=== PATIENT | male | born 1950 | race Caucasian/White ===

== ENCOUNTER → 2019-09-05 09:54 | Outpatient (CLI) | payer MEDICARE, SELFPAY ==
--- NOTE | 2019-09-05 09:55 | CA_ITS ---
APPROVED REPORT EXAM: Comprehensive 2D, Doppler, and color-flow Echocardiogram Head Bone Grinder: Angie Paige RDCS Ht: 5 ft 6 in Wt: 148lbs BSA: 1.76 BP: 156/86 mmHg Indications: CAD HTN HLP KENNEDYS DISEASE 2D Dimensions LVOT 1.79 cm (M/F) 1.5-2.5 M-Mode Dimensions RVDd 1.45 cm (0.9-2.6) LVDd 6.02 cm (3.5-5.7) LVDs 4.69 cm (3.5-5.7) IVSd 0.76 cm (0.6-1.1) PWd 0.76 cm (0.6-1.1) EF (Teich) 43.80% FS 22.10% EDV (Teich) 181.40 mL ESV (Teich) 101.90 mL LV Diastology E/A Ratio 1.07 Mitral Valve MV A Velocity 60.00 (40-130 cm/s) Left Ventricle Left atrium is mildly enlarged, left ventricle is normal size, mild concentric left ventricular hypertrophy, visually estimated ejection fraction 55% with no regional wall motion abnormality. Grade 1 diastolic dysfunction seen without tissue Doppler evidence of raise left atrial pressure. Right Ventricle Right atrium and right ventricular normal size and contractility. Aortic Valve Aortic valve is minimally thickened and fibrosed, there is no aortic stenosis or aortic insufficiency. Mitral Valve Mitral valve is grossly normal, there is mild mitral regurgitation. Tricuspid Valve Tricuspid valve is grossly normal, there is mild tricuspid regurgitation. Pulmonic Valve Pulmonic valve is poorly visualized. Great Vessels Aortic root is normal size. Pericardium No significant pericardial effusion noted. Conclusion 1. Mildly enlarged left atrium, normal left ventricular size, mild concentric left ventricular hypertrophy, visually estimated ejection fraction 55% with no regional wall motion abnormality, grade 1 diastolic dysfunction seen without tissue Doppler evidence of raise left atrial pressure. 2. Mild mitral and tricuspid regurgitation. 3. No significant pericardial effusion noted. Electronically signed by : Hernando Beckham, 09/05/2019 20:57:29
== END ==
PROVIDERS: PCP Family Medicine; Visit Provider Internal Medicine
DX: I25.10 Atherosclerotic heart disease of native coronary artery without angina pectoris (principal)
CPT/HCPCS: 93306

== ENCOUNTER → 2020-09-03 11:51 | Outpatient (CLI) | payer MEDICARE, SELFPAY | PROVIDERS: PCP Family Medicine; Visit Provider Internal Medicine | DX: E78.5 Hyperlipidemia, unspecified (principal); G12.1 Other inherited spinal muscular atrophy; I11.9 Hypertensive heart disease without heart failure; I25.10 Atherosclerotic heart disease of native coronary artery without angina pectoris; K21.9 Gastro-esophageal reflux disease without esophagitis | CPT/HCPCS: 93306 ==

== ENCOUNTER → 2021-09-12 11:23 | Outpatient (CLI) | payer MEDICARE, SELFPAY ==
--- NOTE | 2021-09-12 12:11 | NM_ITS ---
APPROVED REPORT Exam: Nuclear Stress Test Indication: chest pain..short of breath Patient Location: Outpatient Stress Tech: Daisy Chowdary MI Tech:LEE Thompson RT(R)(N) Ht: 5 ft 6 in Wt: 126 lbs HR: 75 bpm BP: 135/79 mmHg BSA: 1.64 m2 BMI: 20.3 History: chest pain..short of breath Procedure: Patient received a 0.4 mg of intravenous Lexiscan, resting heart rate 75 bpm, resting blood pressure 135/79 mmHg, with Lexiscan maximum heart rate achived was 112 bpm which is Less than 85 % of the maximum predicted heart rate and blood pressure was 154/85 mmHg. With Lexiscan, patient denied any complaint of chest pain. pt unable to lay on his belly for the prone pictures Electrocardiogram Resting electrocardiogram shows sinus rhythm, with Lexiscan there is less than 1.[address] segment depression noted from the baseline EKG. The EKG portion of the Lexiscan is nondiagnostic. Cardiac Stress and Resting SPECT Images: Cardiac Stress and Resting SPECT images were obtained using technetium 99m Myoview 32.9 mCi stress and 10.38 mCi at rest. Gated SPECT for analysis of segmental wall motion and calculation of the ejection fraction also done. Cardiac stress and resting SPECT images show mild fixed defect in the inferior wall with normal contractility gated SPECT is likely secondary to soft tissue attenuation, no reversible ischemia seen, compared right ejection fraction is over 65% with no regional wall motion abnormality, right ventricle is normal size and contractility. Conclusion: 1. The EKG portion of the Lexiscan is nondiagnostic. 2. No scintigraphic evidence of reversible ischemia seen, computer derived ejection fraction is over 65% with no regional wall motion abnormality, right ventricle is normal size and contractility. 3. Likely normal Lexiscan Myoview study. Electronically signed by : Hernando Beckham MD 09/13/2021 15:22:06
--- NOTE | 2021-09-12 13:01 | CA_ITS ---
APPROVED REPORT EXAM: Comprehensive 2D, Doppler, and color-flow Echocardiogram Casino Investigator: Lisa Martines RCS, RVS Ht: 5 ft 6 in Wt: 120lbs BSA: 1.61 BP: 130/77 mmHg Indications: CP, SOB, Bienvenido's disease, Echo Enhancing Agent Comments: Patient scanned supine in wheelchair 2D Dimensions IVSd 0.99 cm LVEF (Visual) 52.80 % PWd 0.89 cm LVDd 3.38 cm LVDs 2.49 cm Aortic Root 3.34 cm Left Atrium 2.46 cm LVOT 1.83 cm (M/F) 1.5-2.5 M-Mode Dimensions LA Diam 2.38 cm (1.9-4.0) Ao Diam 3.51 cm (2.0-3.7) TAPSE 1.63 (<1.7) LV Diastology E Decel Time 230.00 (160-240 msec) E/A Ratio 0.76 MED E' 4.40 (< 7 cm/sec) MED A' 9.60 cm/s E'/MED E' Ratio 10.89 (>14) LAT E' 5.40 (<10 cm/sec) LAT A' 10.10 cm/s E/LAT E' Ratio 8.87 (>14) Aortic Valve LVOT Max 73.00 (70-110 cm/s) LVOT VTI 14.67 cm AoV Peak Oneal. 95.00 (50-130 cm/s) AO Peak GR. 3.60 mmHg AO Mean GR. 1.80 (<5 mmHg) AO VTI 16.51 (18-25 cm) ALONDRA (VTI) 2.34 (2.5-4.5 cm2) Mitral Valve MV A Velocity 63.00 (40-130 cm/s) E/A Ratio 0.76 MV Decel. Time 230.00 (160-240 ms) MV Mean Gr. 1.20 (<2mmHg) Tricuspid Valve TR P. Velocity 165.00 cm/s RAP Estimate 10.00 mmHg RVSP 20.90 mmHg Left Ventricle Technically difficult study because of the patient fact in poor acoustic windows, left atrium is mildly enlarged, left ventricle is normal size, mild concentric left ventricular hypertrophy, visually estimated ejection fraction 55% with no regional wall motion abnormality, grade 1 diastolic dysfunction seen without tissue Doppler evidence of raise left atrial pressure. Right Ventricle Right atrium right ventricle is normal size and contractility. Aortic Valve Aortic valve is minimally thickened and fibrosed, there is no aortic stenosis or aortic insufficiency. Mitral Valve Mitral valve is grossly normal, there is trace mitral regurgitation. Tricuspid Valve Tricuspid valve grossly normal, there is trace tricuspid regurgitation, tricuspid regurgitation jet velocity is inadequate for calculation of the right ventricular systolic pressure. Pulmonic Valve Pulmonic valve is poorly visualized. Great Vessels Aortic root is normal size. Inferior vena cava is poorly visualized. Pericardium No significant pericardial effusion noted. Conclusion 1. Technically difficult study because of the patient factors and poor acoustic windows. 2. Mildly enlarged left atrium, normal left ventricular size, mild concentric left ventricular hypertrophy, visually estimated ejection fraction 55% with no regional wall motion abnormality, grade 1 diastolic dysfunction seen without tissue Doppler evidence of raise left atrial pressure. 3. Trace mitral and tricuspid regurgitation. 4. No significant pericardial effusion noted. 5. Inferior vena cava is poorly visualized. Electronically signed by : Hernando Beckham MD 09/13/2021 16:26:40
--- NOTE | 2021-09-12 13:15 | CA_ITS ---
APPROVED REPORT Exam: Pharmacologic Technologist: ,, Ht: 5 ft 6 in Wt: 146 lbs BSA: 1.75 m2 HR: 73 bpm BP: 135/79 mmHg Medical History Medications: Metoprolol,,,,, Asa,,,,, Gabapentin,,,,, Nexium,,,,, Zocor,,,,, KloNOPIN,,,,, Meclizine,,,,, Rameron,,,,, Dyazide,,,,, Stress Test Details Test: Yash HR Resting HR: 75 bpm Max Heart Rate (APMHR): 149.382167 bpm Max HR Achieved: 112 bpm Target HR (85% APMHR): 126.065780 bpm % of APMHR: 75.17 Recovery HR: 98 bpm BP Resting BP: 135/79 mmHg Max BP: 154/85 mmHg Recovery BP: 149.0/83.0 mmHg ECG Resting ECG: NSR, diffuse ST abns Clinical Exercise duration: 04:01 min Highest Stage Achieved: Exercise capacity: 1.0 METs Stress ECG Conclusion Symptoms: No CP, No C/O. Arrhythmias/Ectopy: None ST-T Changes: Exaggeration of baseline ST abns. Conclusion: Non-diagnostic Lexiscan stress. Myoview images reported separately. Electronically signed by : Hernando Beckham MD 09/13/2021 09:16:15
== END ==
PROVIDERS: PCP Nurse Practitioner; Visit Provider Urology
DX: G12.1 Other inherited spinal muscular atrophy; I11.9 Hypertensive heart disease without heart failure; I25.10 Atherosclerotic heart disease of native coronary artery without angina pectoris; R06.00 Dyspnea, unspecified; R07.89 Other chest pain; E78.49 Other hyperlipidemia
CPT/HCPCS: 78452; 93017; 93306; A9502; J2785

== ENCOUNTER → 2022-09-30 14:38 | Outpatient (CLI) | payer MEDICARE, SELFPAY ==
--- NOTE | 2022-09-30 14:40 | CA_ITS ---
APPROVED REPORT EXAM: Comprehensive 2D, Doppler, and color-flow Echocardiogram Pattern Lease Inspector: NATALIE Llamas, RVS Ht: 5 ft 6 in Wt: 126lbs BSA: 1.64 BP: 147/86 mmHg Indications: Bienvenido's disease, CAD, HTN, HLD,Motorized wheelchair bound. retired Physician 2D Dimensions IVSd 0.61 cm M: 0.6-1.2 LVEF (Visual) 66.90 % PWd 0.92 cm M: 0.6 - 1.2 LA Volume 25.70 mL LVDd 3.79 cm M: 4.2 - 5.9 LA Volume Index 15.67 mL/m2 (M/F) 16-34 LVDs 2.41 cm M: 2.5 - 4.0 Aortic Root 3.09 cm M: 3.1 - 3.7 Left Atrium 3.61 cm M: 3.0 - 4.0 LVOT 1.88 cm (M/F) 1.5-2.5 Ascending Aorta 3.24 cm M: 2.6 - 3.4 M-Mode Dimensions LA Diam 3.17 cm (1.9-4.0) Ao Diam 3.72 cm (2.0-3.7) EPSs 1.33 cm TAPSE 1.51 (<1.7) LV Diastology E Decel Time 210.00 (160-240 msec) E/A Ratio 0.76 MED E' 5.90 (< 7 cm/sec) MED A' 9.30 cm/s E'/MED E' Ratio 9.56 (>14) LAT E' 5.40 (<10 cm/sec) LAT A' 10.10 cm/s E/LAT E' Ratio 10.44 (>14) Aortic Valve LVOT Max 76.00 (70-110 cm/s) LVOT VTI 15.84 cm AoV Peak Oneal. 121.00 (50-130 cm/s) AO Peak GR. 5.80 mmHg AO Mean GR. 3.00 (<5 mmHg) AO VTI 23.21 (18-25 cm) ALONDRA (VTI) 1.89 (2.5-4.5 cm2) Mitral Valve MV A Velocity 75.00 (40-130 cm/s) E/A Ratio 0.76 MV Decel. Time 210.00 (160-240 ms) MV PHT 60.00 ms Pulmonary Valve PV Peak Velocity 98.00 (50-150 cm/s) Tricuspid Valve TR P. Velocity 199.00 cm/s RAP Estimate 10.00 mmHg RVSP 25.80 mmHg Left Ventricle Left atrium is mildly enlarged, left ventricle is normal size, mild concentric left ventricular hypertrophy, estimated ejection fraction 55% with no regional wall motion abnormality, grade 1 diastolic dysfunction seen without tissue Doppler evidence of raise left atrial pressure. Right Ventricle Right atrium and right ventricle are normal size and contractility. Aortic Valve Aortic valve is minimally thickened and fibrosed there is no aortic stenosis aortic insufficiency. Mitral Valve Mitral valve is grossly normal, there is trace mitral regurgitation. Tricuspid Valve Tricuspid grossly normal, there is trace tricuspid regurgitation, tricuspid regurgitation jet velocity is inadequate for calculation of the right ventricular systolic pressure. Pulmonic Valve Pulmonic valve is poorly visualized. Great Vessels Aortic root is normal size. Inferior vena cava is poorly visualized. Pericardium No significant pericardial effusion noted. Conclusion 1. Mildly dilated, normal left ventricular size, mild concentric left ventricular hypertrophy, estimated ejection fraction 55% with no regional wall motion abnormality, grade 1 diastolic dysfunction seen without tissue Doppler evidence of raise left atrial pressure. 2. Trace mitral and tricuspid regurgitation. 3. No significant pericardial effusion noted. Electronically signed by : Hernando Beckham MD 09/30/2022 19:27:01
== END ==
PROVIDERS: PCP Nurse Practitioner Family; Visit Provider Internal Medicine
DX: E78.2 Mixed hyperlipidemia (principal); G12.9 Spinal muscular atrophy, unspecified; I11.9 Hypertensive heart disease without heart failure; I25.10 Atherosclerotic heart disease of native coronary artery without angina pectoris
CPT/HCPCS: 93306

== ENCOUNTER → 2023-09-30 09:40 | Outpatient (CLI) | payer MEDICARE, SELFPAY ==
--- NOTE | 2023-09-30 09:47 | CA_ITS ---
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 Limited imaging secondary to limited mobility and positioning. 2D Dimensions LVEF (Topete's) 60.60 % M: 52 - 72 LV Volume 41.10 mL M: 62 - 150 LV Volume Index 23.5 mL/m2 M: 34 - 74 LA Volume 24.60 mL LA Volume Index 14.06 mL/m2 (M/F) 16-34 EF AP4 61.00 % EF AP2 59.2 % EF BP 60.6 % GL Strain -22.4 % LV Diastology E Decel Time 183 (160-240 msec) E/A Ratio 1.0 MED E' 4.9 (>= 7 cm/sec) E'/MED E' Ratio 13.57 (<= 14) LAT E' 6.3 (>= 10 cm/sec) E/LAT E' Ratio 10.56 (<= 14) Mitral Valve MV E Max Oneal. 66.0 (40-130 cm/s) MV A Velocity 67.0 (40-130 cm/s) E/A Ratio 0.99 MV Decel. Time 183 (160-240 ms) Left Ventricle The left ventricle is normal size. The left ventricular systolic function is normal. The left ventricular ejection fraction is within the normal range. There is increased LV wall thickness. Regional wall motion abnormalities cannot be accurately estimated due to technically limited study. Diastolic function is indeterminate. LVEF is 55%. Right Ventricle The right ventricle is not well-visualized. Atria The left atrium size is normal. The right atrium is not well-visualized. Aortic Valve The aortic valve is mildly thickened. There is no aortic valvular stenosis. The the tricuspid valve leaflets are not well-visualized. No aortic regurgitation is present. Mitral Valve The mitral valve leaflets are mildly thickened. No evidence of mitral valve stenosis. Trace mitral regurgitation. Tricuspid Valve The tricuspid valve leaflets are not well-visualized. Pulmonic Valve The pulmonic valve is not well-visualized. Great Vessels The aortic root is not well-visualized. The IVC is not well-visualized. Pericardium There is a small sized, anterior pericardial effusion noted. The largest pocket measures 0.4 mm in diastole. Other Information Study Quality: Fair Conclusion Normal LV systolic function. The right ventricle is not well-visualized. No significant valvular stenosis or regurgitation in the AV or MV. The TV and PV are not well-visualized. Small sized, anterior pericardial effusion. Electronically signed by : Kristy Mabry MD 10/05/2023 19:34:43
== END ==
PROVIDERS: PCP Nurse Practitioner Family; Visit Provider Internal Medicine
DX: I11.9 Hypertensive heart disease without heart failure (principal); G12.9 Spinal muscular atrophy, unspecified; I25.10 Atherosclerotic heart disease of native coronary artery without angina pectoris
CPT/HCPCS: 93306